=== PATIENT | female | born 2005 | race Caucasian/White ===

== ENCOUNTER 2024-01-08 02:28 | Emergency (ER) | payer BC ==
[~2024-01-08] VITALS: Ht 160 cm; Wt 75.0 kg
[2024-01-08 02:29] VITALS: BP 120/83; PULSE 92; TEMP 98.1
== END 2024-01-08 03:20 | disposition home or self-care (01) ==
LOC: COL.ER 02:28
DX: S50.02XA Contusion of left elbow, initial encounter (principal); W18.30XA Fall on same level, unspecified, initial encounter; W22.8XXA Striking against or struck by other objects, initial encounter